=== PATIENT | female | born 2000 | race Caucasian/White ===

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

== ENCOUNTER → 2021-03-16 | Outpatient (CLI) | payer OTHER ==
[~2021-03-16] MED LIST: BENTYL 10MG CAP10 MG PO; BENTYL 20MG TAB20 MG PO; BUPROPION XL150 MG PO; COLACE 100MG C100 MG PO; INDERAL TAB 2020 MG PO; LO LOESTRIN FE1 EACH PO; LODINE CAP 300300 MG PO; MIRALAX 119 GR119 GM PO; NORCO 5-325 TA1 EACH PO; NORFLEX 100 MG100 MG PO; OMEPRAZOLE40 MG PO; VISTARIL25 MG PO; ZOFRAN4 MG PO
== END ==
LOC: RAD 14:20
DX: M54.50 Low back pain, unspecified (principal)
CPT/HCPCS: 72100

== ENCOUNTER 2021-12-05 10:30 | Emergency (ER) | payer OTHER ==
[2021-12-05] MEDS ORDERED: MEDROL DOSEPAK 24 MG PO (13:02)
[2021-12-05] MEDS ORDERED: NORFLEX 100 MG100 MG PO (13:02)
== END 2021-12-05 13:35 | disposition home or self-care (01) ==
LOC: ER1 10:30
DX: M54.50 Low back pain, unspecified (principal); Z90.49 Acquired absence of other specified parts of digestive tract; Z88.0 Allergy status to penicillin; F17.290 Nicotine dependence, other tobacco product, uncomplicated
CPT/HCPCS: 72100; 81001; 84703; 96372; 99283; J1885; J2930